=== PATIENT | male | born 1950 | race African-American/Black ===

== ENCOUNTER 2018-11-13 23:44 | Emergency (ER) | payer BC, MEDICARE ==
[~2018-11-13] VITALS: Ht 172.7 cm; Wt 66.0 kg
[~2018-11-13 23:44] MED LIST: DIPH25CA83 PO; FERR-63 PO; FOLI-43 PO; FURO40TA5 PO; HYDR50SY PO; LORA1TAB PO; OMEP40CA34 PO; RISP1 PO; [UNRECOGNIZED DRUG - OTHER]
[2018-11-14] MEDS ORDERED: SODIUM CHLORIDE 0.9% 1,000 ML IV ONE (00:56)
[2018-11-14] MEDS ORDERED: ONDANSETRON HCL 4MG/2ML INJ IV STA (00:56)
[2018-11-14] MEDS ORDERED: TETANUS, DIPHTHERIA, PERTUSSIS VAC/PF 0.5ML (>7YR OLD) IM ONE (01:00)
[2018-11-14] MEDS ORDERED: BACITRACIN ZINC OINT UDPKT TOP ONE (01:00)
[2018-11-14] MEDS ORDERED: CEFAZOLIN 1000MG PREMIX 50 ML IV ONE (01:00)
[2018-11-14] MEDS ORDERED: LIDOCAINE HCL 1% 20ML VIAL (Pyxis) INJ INJ ONE (01:00)
[2018-11-14 01:21] LABS: BASOPHILS % 1.3 % (0.0-2.0); EOSINOPHILS % 4.5 % (0.0-5.0); HEMOGLOBIN. 13.1 g/dL (14.0-18.0); LYMPHOCYTES % 42.8 % (20.0-50.0); MEAN CORPUSCULAR VOLUME 95.8 fL (80.0-94.0); MEAN PLATELET VOLUME 8.5 fl (7.4-10.4); MONOCYTES % 11.2 % (2.0-8.0); NEUTROPHILS % 40.2 % (40.0-76.0); PLATELET 183 x1000/uL (130-400); RED BLOOD CELL COUNT 4.08 mill/uL (4.7-6.1); RED CELL DISTRIBUTION WIDTH 15.3 % (11.6-14.6)
[2018-11-14 01:27] LABS: CHLORIDE 111 mEq/L (98-107)
[2018-11-14 01:30] LABS: INR 1.3; PROTHROMBIN TIME 13.3 sec (9.6-11.0)
[2018-11-14 01:31] LABS: ETHANOL BLOOD 166 mg/dL
[2018-11-14 06:57] LABS: *AMPHETAMINES SCREEN URINE NEGATIVE (NEGATIVE); *BARBITURATES SCREEN URINE NEGATIVE (NEGATIVE); *BENZODIAZEPINES SCREEN URINE NEGATIVE (NEGATIVE); *COCAINE SCREEN URINE PRESUMTIVE POSITIVE (NEGATIVE)
[2018-11-14 06:58] LABS: CANNABINOID URINE SCREEN NEGATIVE (NEGATIVE); METHADONE URINE SCREEN NEGATIVE (NEGATIVE); OPIATES URINE SCREEN NEGATIVE (NEGATIVE); PHENCYCLIDINE URINE SCREEN NEGATIVE (NEGATIVE)
[2018-11-14 14:48] VITALS: BP 115/72
== END 2018-11-14 14:49 | disposition home or self-care (01) ==
LOC: ER 23:44
DX: S01.01XA Laceration without foreign body of scalp, initial encounter (principal); F20.9 Schizophrenia, unspecified; Z79.899 Other long term (current) drug therapy; Z98.890 Other specified postprocedural states; W22.8XXA Striking against or struck by other objects, initial encounter; Y93.89 Activity, other specified; Y92.811 Bus as the place of occurrence of the external cause; Y99.8 Other external cause status
CPT/HCPCS: 12002; 36415; 70450; 71045; 72125; 80053; 80305; 80320; 85025; 85610; 90471; 90715; 96365; 96375; 99284; J0690; J2405; J3490; J7030; G0480

== ENCOUNTER 2018-12-11 11:05 | Emergency (ER) | payer BC ==
[~2018-12-11] VITALS: Ht 175.3 cm; Wt 85.0 kg
[2018-12-11 12:47] VITALS: BP 121/67
== END 2018-12-11 13:10 | disposition home or self-care (01) ==
LOC: ER 11:05
DX: Z48.02 Encounter for removal of sutures (principal); F10.229 Alcohol dependence with intoxication, unspecified; F14.10 Cocaine abuse, uncomplicated; F17.210 Nicotine dependence, cigarettes, uncomplicated; Y90.9 Presence of alcohol in blood, level not specified; Z71.6 Tobacco abuse counseling
CPT/HCPCS: 99283; 99406